=== PATIENT | female | born 1950 | race Caucasian/White ===

== ENCOUNTER → 2023-03-26 | Outpatient (CLI) | payer MEDICARE, OTHER ==
[~2023-03-26] VITALS: Ht 172 cm; Wt 84.0 kg
[~2023-03-26] MED LIST: CATHETER FLUSH 10 ML SYR IVP PRN; REGADENOSON 0.4 MG/5 ML SYR (LEXISCAN) IV ONE
[2023-03-26 13:41] VITALS: BP 142/94
== END ==
LOC: CARD 12:07
PROVIDERS: ATTEND Internal Medicine Cardiovascular Disease
DX: R06.09 Other forms of dyspnea (principal)
CPT/HCPCS: 78452; 93017; A9502

== ENCOUNTER → 2023-08-21 | Outpatient (CLI) | payer MEDICARE, OTHER ==
[~2023-08-21] VITALS: Ht 172.7 cm; Wt 86.4 kg
[~2023-08-21] MED LIST changes: +CALC-1049 PO; -CATHETER FLUSH 10 ML SYR IVP PRN; +FOLI200T11 PO; +LEVO125C4 PO; +LEVO125T6 PO; +LISI1TAB46 PO; +LISI1TAB48 PO; +LORA10CA PO; +METR-143 PO; +NEOM500T12 PO; +RALO60TA12 PO; -REGADENOSON 0.4 MG/5 ML SYR (LEXISCAN) IV ONE; +[UNRECOGNIZED DRUG - OTHER] PO
== END | disposition home or self-care (01) ==
LOC: PREOP 05:29
PROVIDERS: ATTEND Surgery
DX: Z01.818 Encounter for other preprocedural examination (principal)